=== PATIENT | male | born 1975 | race Caucasian/White ===

== ENCOUNTER 2018-08-09 20:12 | Emergency (ER) | payer BC ==
[2018-08-09] MEDS ORDERED: SODIUM CHLORIDE 0.9% 1,000 ML IV STA (20:41)
[2018-08-09 21:15] LABS: Basophils % (A) 1 %; Eosinophils # (A) 0.2 k/uL (0-0.7); Eosinophils % (A) 3 %; HCT 45.6 % (39.0-53.0); HGB 15.9 gm/dL (13.0-17.5); Lymphocytes # (A) 2.8 k/uL (1.0-4.8); Lymphocytes % (A) 43 %; MCHC 34.8 g/dL (31.0-37.0); MCV 89.1 fL (80.0-100.0); Mean Platelet Volume 6.9; Monocytes # (A) 0.4 k/uL (0-1.0); Monocytes % (A) 6 %; Neutrophils % (A) 46 %; Platelet Count 233 k/uL (150-450); RBC 5.11 m/uL (4.30-5.90); RDW 13.8 % (11.5-15.5); WBC 6.5 k/uL (3.8-10.6)
[2018-08-09 21:19] LABS: Amorphous Sediment,Urine Rare /hpf; Appearance,Urine Cloudy (Clear); Bilirubin,Urine Negative (Negative); Blood,Urine Negative (Negative); Color,Urine Light Yellow; Glucose,Urine (UA) Negative (Negative); Ketones,Urine Negative (Negative); Leukocyte Esterase,Urine Negative (Negative); Nitrite,Urine Negative (Negative); Protein,Urine Negative (Negative); Specific Gravity,Urine 1.018 (1.001-1.035); Urobilinogen,Urine <2.0 mg/dL (<2.0); WBC,Urine <1 /hpf (0-5)
[2018-08-09 21:26] LABS: Albumin 4.5 g/dL (3.5-5.0); Alkaline Phosphatase 64 U/L (38-126); Amylase 87 U/L (30-110); Anion Gap 9 mmol/L; Blood Urea Nitrogen 23 mg/dL (9-20); Calcium 9.5 mg/dL (8.4-10.2); Carbon Dioxide 25 mmol/L (22-30); Chloride 108 mmol/L (98-107); Glucose 88 mg/dL (74-99); Lipase 219 U/L (23-300); Sodium 142 mmol/L (137-145); Total Bilirubin 0.6 mg/dL (0.2-1.3); Total Protein 7.2 g/dL (6.3-8.2)
[2018-08-09 21:30] LABS: ALT 19 U/L (21-72); AST 24 U/L (17-59); Potassium 3.9 mmol/L (3.5-5.1)
--- NOTE | 2018-08-09 21:58 | CT ---
EXAMINATION TYPE: CT abdomen pelvis w con DATE OF EXAM: 08/09/2018 COMPARISON: 09/03/2009 HISTORY: abdominal pain, left side abdominal mass CT DLP: 1555 mGycm Automated exposure control for dose reduction was used. TECHNIQUE: Helical acquisition of images was performed from the lung bases through the pelvis. CONTRAST: Performed without Oral Contrast and with IV Contrast, patient injected with 100 mL of Isovue 300. FINDINGS: Lung bases are clear. There is no pleural effusion. Heart size is normal. There is no pericardial eff usion. Liver spleen stomach pancreas appear normal. Bile ducts are not dilated. There are clips from cholecy stectomy. There is no adrenal mass. Kidneys have normal size and contour. There is no hydronephrosis. There is normal renal excretion. There is no retroperitoneal adenopathy. Bladder distends smoothly. There is m inimal prostatic calcification. There is no inguinal hernia. There is no evidence of a pelvic mass. T here is no free fluid in the pelvis. There is no mesenteric edema. There is no evidence of a bowel obstruction. There is clips from append ectomy. There is no free air. There is no ascites. Lumbar spine is intact. I see no bony destructive process. There is fat density mass on the left anterior abdominal wall that is probably palpable and interpose d between muscle layers. This appears to be communicating with the omentum and is consistent with camelia tral hernia. IMPRESSION: There is a ventral hernia measures 7 x 3.5 cm. on the left anterior abdominal wall that in retrospect is increased in size compared to old CT scan from 2009. No acute abnormality.
--- NOTE | 2018-08-09 22:20 | ED ---
Abdominal Pain HPI - General Chief Complaint: Abdominal Pain Stated Complaint: Abd pain Time Seen by Provider: 08/09/18 20:35 Source: patient Mode of arrival: ambulatory Limitations: no limitations - History of Present Illness Initial Comments: 43-year-old male patient presents to the emergency department today for evaluation of left-sided abdominal pain and abdominal mass. Patient states that he has had increase in pain to the area over the last couple of weeks. Patient states he has felt the area increasing in size as well. States it is tender to touch. He denies any constipation, diarrhea, hematochezia, melena, nausea, or vomiting with this. Denies any fever or chills. Patient reports history of cholecystectomy and appendectomy. Denies any other abdominal surgeries. Patient denies any recent rash, shortness breath, chest pain, back pain, numbness, tingling, dizziness, weakness, hematuria, dysuria, urinary urgency, urinary frequency, headache, visual changes, or any other complaints. - Related Data Home Medications Medication Instructions Recorded Confirmed No Known Home Medications 08/09/18 08/09/18 Allergies Allergy/AdvReac Type Severity Reaction Status Date / Time shellfish derived [Shellfish] Allergy Anaphylaxis Verified 08/09/18 20:56 Review of Systems ROS Statement: Those systems with pertinent positive or pertinent negative responses have been documented in the HPI. ROS Other: All systems not noted in ROS Statement are negative. Past Medical History Past Medical History: No Reported History History of Any Multi-Drug Resistant Organisms: None Reported Past Surgical History: Appendectomy, Cholecystectomy Additional Past Surgical History / Comment(s): parathyroid tumors removed. Past Psychological History: No Psychological Hx Reported Smoking Status: Never smoker Past Alcohol Use History: Occasional Past Drug Use History: None Reported General Exam Limitations: no limitations General appearance: alert, in no apparent distress, other (Physical well- developed, well-nourished adult male patient in no acute distress. Vital signs upon presentation are temperature 98.5F, pulse 67, respirations 20, blood pressure 151/84, pulse ox 97% on room air.) Eye exam: Present: normal appearance, PERRL, EOMI. Absent: scleral icterus, conjunctival injection, periorbital swelling ENT exam: Present: normal exam, normal oropharynx, mucous membranes moist Respiratory exam: Present: normal lung sounds bilaterally. Absent: respiratory distress, wheezes, rales, rhonchi, stridor Cardiovascular Exam: Present: regular rate, normal rhythm, normal heart sounds. Absent: systolic murmur, diastolic murmur, rubs, gallop, clicks GI/Abdominal exam: Present: soft, normal bowel sounds, mass (Left midabdomen). Absent: distended, tenderness, guarding, rebound, rigid Neurological exam: Present: alert, oriented X3, CN II-XII intact Psychiatric exam: Present: normal affect, normal mood Skin exam: Present: warm, dry, intact, normal color. Absent: rash Course Vital Signs 08/09/18 08/09/18 20:26 22:50 Temperature 98.5 F 98.1 F Pulse Rate 67 87 Respiratory 20 18 Rate Blood Pressure 151/84 122/87 O2 Sat by Pulse 97 99 Oximetry Medical Decision Making - Medical Decision Making 43-year-old male patient presents to emergency department today for evaluation of left-sided abdominal pain and mass. Physical examination did reveal left- sided abdominal masses tender upon palpation. No guarding or rebound. Labs reviewed and are unremarkable. No white blood cell count. Lactic acid nega tive. CT abdomen and pelvis was obtained and showed evidence of a fat- containing ventral hernia in the left midabdomen. I did discuss findings and results with the patient. Did discuss his symptoms are related to this hernia. He will be discharged at this time to follow-up with general surgery o utpatient. We did discuss return parameters in detail. He verbalizes understanding and agrees with this plan. - Lab Data Result diagrams: 08/09/18 21:04 08/09/18 21:04 Lab Results 08/09/18 08/09/18 08/09/18 Range/Units 21:04 21:04 21:04 WBC 6.5 (3.8-10.6) k/uL RBC 5.11 (4.30-5.90) m/uL Hgb 15.9 (13.0-17.5) gm/dL Hct 45.6 (39.0-53.0) % MCV 89.1 (80.0-100.0) fL MCH 31.0 (25.0-35.0) pg MCHC 34.8 (31.0-37.0) g/dL RDW 13.8 (11.5-15.5) % Plt Count 233 (150-450) k/uL Neutrophils % 46 % Lymphocytes % 43 % Monocytes % 6 % Eosinophils % 3 % Basophils % 1 % Neutrophils # 3.0 (1.3-7.7) k/uL Lymphocytes # 2.8 (1.0-4.8) k/uL Monocytes # 0.4 (0-1.0) k/uL Eosinophils # 0.2 (0-0.7) k/uL Basophils # 0.0 (0-0.2) k/uL Sodium 142 (137-145) mmol/L Potassium 3.9 (3.5-5.1) mmol/L Chloride 108 H (98-107) mmol/L Carbon Dioxide 25 (22-30) mmol/L Anion Gap 9 mmol/L BUN 23 H (9-20) mg/dL Creatinine 1.03 (0.66-1.25) mg/dL Est GFR (CKD-EPI)AfAm >90 (>60 ml/min/1.73 sqM) Est GFR (CKD-EPI)NonAf >90 (>60 ml/min/1.73 sqM) Glucose 88 (74-99) mg/dL Plasma Lactic Acid Shaun 1.4 (0.7-2.0) mmol/L Calcium 9.5 (8.4-10.2) mg/dL Total Bilirubin 0.6 (0.2-1.3) mg/dL AST 24 (17-59) U/L ALT 19 L (21-72) U/L Alkaline Phosphatase 64 (38-126) U/L Total Protein 7.2 (6.3-8.2) g/dL Albumin 4.5 (3.5-5.0) g/dL Amylase 87 (30-110) U/L Lipase 219 (23-300) U/L Urine Color Urine Appearance (Clear) Urine pH (5.0-8.0) Ur Specific Jeremiah (1.001-1.035) Urine Protein (Negative) Urine Glucose (UA) (Negative) Urine Ketones (Negative) Urine Blood (Negative) Urine Nitrite (Negative) Urine Bilirubin (Negative) Urine Urobilinogen (<2.0) mg/dL Ur Leukocyte Esterase (Negative) Urine WBC (0-5) /hpf Amorphous Sediment (None) /hpf 08/09/18 Range/Units 21:04 WBC (3.8-10.6) k/uL RBC (4.30-5.90) m/uL Hgb (13.0-17.5) gm/dL Hct (39.0-53.0) % MCV (80.0-100.0) fL MCH (25.0-35.0) pg MCHC (31.0-37.0) g/dL RDW (11.5-15.5) % Plt Count (150-450) k/uL Neutrophils % % Lymphocytes % % Monocytes % % Eosinophils % % Basophils % % Neutrophils # (1.3-7.7) k/uL Lymphocytes # (1.0-4.8) k/uL Monocytes # (0-1.0) k/uL Eosinophils # (0-0.7) k/uL Basophils # (0-0.2) k/uL Sodium (137-145) mmol/L Potassium (3.5-5.1) mmol/L Chloride (98-107) mmol/L Carbon Dioxide (22-30) mmol/L Anion Gap mmol/L BUN (9-20) mg/dL Creatinine (0.66-1.25) mg/dL Est GFR (CKD-EPI)AfAm (>60 ml/min/1.73 sqM) Est GFR (CKD-EPI)NonAf (>60 ml/min/1.73 sqM) Glucose (74-99) mg/dL Plasma Lactic Acid Shaun (0.7-2.0) mmol/L Calcium (8.4-10.2) mg/dL Total Bilirubin (0.2-1.3) mg/dL AST (17-59) U/L ALT (21-72) U/L Alkaline Phosphatase (38-126) U/L Total Protein (6.3-8.2) g/dL Albumin (3.5-5.0) g/dL Amylase (30-110) U/L Lipase (23-300) U/L Urine Color Light Yellow Urine Appearance Cloudy (Clear) Urine pH 7.0 (5.0-8.0) Ur Specific Jeremiah 1.018 (1.001-1.035) Urine Protein Negative (Negative) Urine Glucose (UA) Negative (Negative) Urine Ketones Negative (Negative) Urine Blood Negative (Negative) Urine Nitrite Negative (Negative) Urine Bilirubin Negative (Negative) Urine Urobilinogen <2.0 (<2.0) mg/dL Ur Leukocyte Esterase Negative (Negative) Urine WBC <1 (0-5) /hpf Amorphous Sediment Rare H (None) /hpf - Radiology Data Radiology results: report reviewed, image reviewed CT abdomen and pelvis with contrast is obtained. Report was reviewed in its entirety. Impression by Dr. George shows a ventral hernia measuring 7 x 3.5 cm on the left anterior abdominal wall that in retrospect is increased in size compared to old CT from 2009. No acute abnormality. Disposition Clinical Impression: Ventral hernia Disposition: HOME SELF-CARE Condition: Good Instructions (If sedation given, give patient instructions): Ventral Hernia (ED) Additional Instructions: Follow-up with surgeon for further evaluation as soon as possible. Return to the emergency department immediately for any new, worsening, or concerning symptoms. Is patient prescribed a controlled substance at d/c from ED?: No Referrals: Dylon Begum DO [Doctor of Osteopathic Medicine] - 1-2 days Time of Disposition: 22:20
[2018-08-09 22:51] VITALS: BP 122/87; PULSE 87; RESP 18; TEMP 98.1
== END 2018-08-09 22:51 | disposition home or self-care (01) ==
LOC: EC 20:12
DX: K43.9 Ventral hernia without obstruction or gangrene (principal); Z91.013 Allergy to seafood; Z90.49 Acquired absence of other specified parts of digestive tract
CPT/HCPCS: 36415; 80053; 82150; 83605; 83690; 85025; 81001; 74177; 99284; 96360; 96361; Q9967